=== PATIENT | female | born 2000 | race Caucasian/White ===

== ENCOUNTER 2019-11-10 15:45 | Emergency (ER) | payer MEDICAID, OTHER ==
[2019-11-10] MEDS ORDERED: Sodium Chloride 0.9% 1000 ML 1,000 ML IV STA (15:58)
[2019-11-10] MEDS ORDERED: MORPHINE SULFATE 2 MG INJ IV ONE (15:58)
[2019-11-10] MEDS ORDERED: Zofran 4 MG/2 ML VIAL IV ONE (15:58)
[2019-11-10 16:04] VITALS: PULSE 80
[2019-11-10] MEDS ORDERED: Zofran 4 MG/2 ML VIAL ONE ×2 (16:24→17:49)
[2019-11-10] MEDS ORDERED: Sodium Chloride 0.9% 1000 ML 1,000 ML ONE (16:25)
[2019-11-10] MEDS ORDERED: MORPHINE SULFATE 4 MG INJ ONE (16:25)
--- NOTE | 2019-11-10 16:32 | ERPHSYRPT ---
- History of Present Illness Time Seen by Provider: 11/10/19 15:47 Source: patient Exam Limitations: no limitations Patient Subjective Stated Complaint: Pt c/o of pain that began in her left flank a couple of days ago and has now moved around to her lower abdomen, pt has hx of kidney stones requiring surgery Triage Nursing Assessment: Pt brought to the ER by her grandfather, pain with palpatation to the left flank and lower abdomen, last BM today, N&V, vitals wnl , rates pain 8/10, hematuria, bowel sounds heard in all 4 Physician History: Patient is here with left flank pain. No falls no trauma. Patient states that she has a history of kidney stones. She is not . States that she is on her period. She has 3 children. She previously had her gallbladder out and appendicitis. Location: left flank Quality: sharp Radiation: into abdomen Severity: moderate Duration: 2-3 days Timing: gradual Modifying factors/associated signs and symptoms: h/o kidney stone Allergies/Adverse Reactions: NSAIDS (Non-Steroidal Anti-Inflamma Allergy (Verified 11/10/19 16:04) Home Medications: No Reportable Medications [No Reported Medications] 11/10/19 [History] Hx Tetanus, Diphtheria Vaccination/Date Given: No Hx Influenza Vaccination/Date Given: No Hx Pneumococcal Vaccination/Date Given: No Travel Risk - International Travel Have you traveled outside of the country in past 3 weeks: No Have you or anyone close to you been diagnosed with or: No Do your reside in a community with a known COVID-19 case?: Yes If Yes where:: [place] - Coronavirus Screening Has patient experienced Coronavirus symptoms: No - Review of Systems Constitutional: No Fever, No Chills Eyes: No Symptoms Ears, Nose, & Throat: No Symptoms Respiratory: No Cough, No Dyspnea Cardiac: No Chest Pain, No Edema, No Syncope Abdominal/Gastrointestinal: Abdominal Pain, Nausea, Vomiting, No Diarrhea Genitourinary Symptoms: No Dysuria Musculoskeletal: No Back Pain, No Neck Pain Skin: No Rash Neurological: No Dizziness, No Focal Weakness, No Sensory Changes Psychological: No Symptoms Endocrine: No Symptoms All Other Systems: Reviewed and Negative - Past Medical History Pertinent Past Medical History: Yes History: Other Other Medical History: KIDNEY STONES, OVARIAN CYSTS - Past Surgical History Past Surgical History: Yes Gastrointestinal: Appendectomy, Cholecystectomy, Hemorrhoidectomy Other Surgical History: STENTS IN BOTH KIDNEYS, KIDNEY STONES REMOVED, T&A, - Social History Smoking Status: Never smoker Exposure to second hand smoke: No Drug Use: none Patient Lives Alone: No - Female History Hx Last Menstrual Period: 11/05/2019 Hx Now: No - Nursing Vital Signs Nursing Vital Signs: Initial Vital Signs Temperature 98.0 F 11/10/19 15:50 Pulse Rate 80 11/10/19 15:50 Blood Pressure 135/88 11/10/19 15:50 O2 Sat by Pulse Oximetry 100 11/10/19 15:50 Pain Scale Pain Intensity 8 - Physical Exam General Appearance: no apparent distress, alert Eye Exam: PERRL/EOMI, eyes nml inspection Ears, Nose, Throat Exam: normal ENT inspection, TMs normal, pharynx normal, moist mucous membranes Neck Exam: normal inspection, non-tender, supple, full range of motion Respiratory Exam: normal breath sounds, lungs clear, No respiratory distress Cardiovascular Exam: regular rate/rhythm, normal heart sounds, normal peripheral pulses Gastrointestinal/Abdomen Exam: soft, normal bowel sounds, tenderness (Left flank tenderness. Mild abdominal tenderness without rebound or guarding.), other, No mass Back Exam: normal inspection, normal range of motion, No CVA tenderness, No vertebral tenderness Extremity Exam: normal inspection, normal range of motion, pelvis stable Neurologic Exam: alert, oriented x 3, cooperative, normal mood/affect, nml cerebellar function, nml station & gait, sensation nml, No motor deficits Skin Exam: normal color, warm, dry, No rash Lymphatic Exam: No adenopathy SpO2 Interpretation: normal SpO2: 100 - Course Nursing assessment & vital signs reviewed: Yes Ordered Tests: Active Orders 24 hr Category Date Time Status IV Insertion STAT Care 11/10/19 15:58 Active ABDOMEN AND PELVIS W CONTRAST [CT] Stat Exams 11/10/19 16:38 Taken CBC W DIFF Stat Lab 11/10/19 16:20 Completed CMP Stat Lab 11/10/19 16:20 Completed CULTURE,URINE Stat Lab 11/10/19 16:23 Received HCG,QUALITATIVE URINE Stat Lab 11/10/19 16:23 Completed LIPASE Stat Lab 11/10/19 16:20 Completed UA W/RFX UR CULTURE Stat Lab 11/10/19 16:23 Completed Medication Summary Discontinued Medications Generic Name Dose Route Start Last Admin Trade Name Freq PRN Reason Stop Dose Admin Diphenhydramine HCl 25 mg 11/10/19 17:35 11/10/19 17:54 Benadryl 50 Mg/Ml IV 11/10/19 17:36 Not Given STAT ONE Droperidol 1.25 mg 11/10/19 17:35 11/10/19 17:55 Inapsine 5 Mg/2 Ml IV 11/10/19 17:36 Not Given STAT ONE Droperidol Confirm 11/10/19 17:49 Inapsine 5 Mg/2 Ml Administered 11/10/19 17:50 Dose 5 mg .ROUTE .STK-MED ONE Sodium Chloride 1,000 mls @ 999 mls/hr 11/10/19 15:58 11/10/19 16:29 Sodium Chloride 0.9% 1000 Ml IV 11/10/19 16:58 999 mls/hr .Q1H1M STA Administration Sodium Chloride Confirm 11/10/19 16:25 Sodium Chloride 0.9% 1000 Ml Administered 11/10/19 16:26 Dose 1,000 mls @ ud .ROUTE .STK-MED ONE Morphine Sulfate 2 mg 11/10/19 15:58 11/10/19 16:31 Morphine Sulfate 2 Mg Inj IV 11/10/19 15:59 2 mg STAT ONE Administration Morphine Sulfate Confirm 11/10/19 16:25 Morphine Sulfate 4 Mg Inj Administered 11/10/19 16:26 Dose 4 mg .ROUTE .STK-MED ONE Ondansetron HCl 4 mg 11/10/19 15:58 11/10/19 16:30 Zofran 4 Mg/2 Ml Vial IV 11/10/19 15:59 4 mg STAT ONE Administration Ondansetron HCl Confirm 11/10/19 16:24 Zofran 4 Mg/2 Ml Vial Administered 11/10/19 16:25 Dose 4 mg .ROUTE .STK-MED ONE Ondansetron HCl Confirm 11/10/19 17:49 Zofran 4 Mg/2 Ml Vial Administered 11/10/19 17:50 Dose 4 mg .ROUTE .STK-MED ONE Lab/Rad Data: Laboratory Result Diagrams 11/10/19 16:20 11/10/19 16:20 Laboratory Results 11/10/19 11/10/19 11/10/19 Range/Units 16:23 16:23 16:20 WBC (4.0-10.5) K/mm3 RBC (4.1-5.4) M/mm3 Hgb (12.0-16.0) gm/dl Hct (35-47) % MCV (78-100) fl MCH (26-32) pg MCHC (32-36) g/dl RDW (11.5-14.0) % Plt Count (150-450) K/mm3 MPV (7.5-11.0) fl Gran % (36.0-66.0) % Eos # (Auto) (0-0.5) Absolute Lymphs (auto) (1.0-4.6) Absolute Monos (auto) (0.0-1.3) Lymphocytes % (24.0-44.0) % Monocytes % (0.0-12.0) % Eosinophils % (0.00-5.0) % Basophils % (0.0-0.4) % Absolute Granulocytes (1.4-6.9) Basophils # (0-0.4) Sodium 137 (137-145) mmol/L Potassium 4.9 (3.5-5.1) mmol/L Chloride 102 (98-107) mmol/L Carbon Dioxide 23 (22-30) mmol/L Anion Gap 17.5 H (5-15) MEQ/L BUN 12 (7-17) mg/dL Creatinine 0.46 L (0.52-1.04) mg/dL Estimated GFR > 60.0 ML/MIN Glucose 117 H (74-106) mg/dL Calcium 9.3 (8.4-10.2) mg/dL Total Bilirubin 1.10 (0.2-1.3) mg/dL AST 44 H (14-36) U/L ALT 11 (0-35) U/L Alkaline Phosphatase 63 (38-126) U/L Serum Total Protein 8.6 H (6.3-8.2) g/dL Albumin 4.9 (3.5-5.0) g/dL Lipase 72 (23-300) U/L Urine Color YELLOW (YELLOW) Urine Appearance CLOUDY (CLEAR) Urine pH 8.0 (5-6) Ur Specific [place] 1.014 (1.005-1.025) Urine Protein NEGATIVE (Negative) Urine Ketones NEGATIVE (NEGATIVE) Urine Blood LARGE (0-5) Dionte/ul Urine Nitrite NEGATIVE (NEGATIVE) Urine Bilirubin NEGATIVE (NEGATIVE) Urine Urobilinogen NEGATIVE (0-1) mg/dL Ur Leukocyte Esterase NEGATIVE (NEGATIVE) Urine WBC (Auto) 6-10 (0-5) /HPF Urine RBC (Auto) >101 (0-2) /HPF U Epithel Cells (Auto) RARE (FEW) /HPF Urine Bacteria (Auto) FEW (NEGATIVE) /HPF Urine Mucus (Auto) SLIGHT (NEGATIVE) /HPF Urine Culture Reflexed YES (NO) Urine Glucose NEGATIVE (NEGATIVE) mg/dL Urine HCG, Qual NEGATIVE (Negative) 11/10/19 Range/Units 16:20 WBC 7.8 (4.0-10.5) K/mm3 RBC 4.24 (4.1-5.4) M/mm3 Hgb 13.4 (12.0-16.0) gm/dl Hct 41.2 (35-47) % MCV 97.2 (78-100) fl MCH 31.6 (26-32) pg MCHC 32.5 (32-36) g/dl RDW 11.7 (11.5-14.0) % Plt Count 308 (150-450) K/mm3 MPV 11.0 (7.5-11.0) fl Gran % 68.7 H (36.0-66.0) % Eos # (Auto) 0.03 (0-0.5) Absolute Lymphs (auto) 1.88 (1.0-4.6) Absolute Monos (auto) 0.49 (0.0-1.3) Lymphocytes % 24.2 (24.0-44.0) % Monocytes % 6.3 (0.0-12.0) % Eosinophils % 0.4 (0.00-5.0) % Basophils % 0.4 (0.0-0.4) % Absolute Granulocytes 5.35 (1.4-6.9) Basophils # 0.03 (0-0.4) Sodium (137-145) mmol/L Potassium (3.5-5.1) mmol/L Chloride (98-107) mmol/L Carbon Dioxide (22-30) mmol/L Anion Gap (5-15) MEQ/L BUN (7-17) mg/dL Creatinine (0.52-1.04) mg/dL Estimated GFR ML/MIN Glucose (74-106) mg/dL Calcium (8.4-10.2) mg/dL Total Bilirubin (0.2-1.3) mg/dL AST (14-36) U/L ALT (0-35) U/L Alkaline Phosphatase (38-126) U/L Serum Total Protein (6.3-8.2) g/dL Albumin (3.5-5.0) g/dL Lipase (23-300) U/L Urine Color (YELLOW) Urine Appearance (CLEAR) Urine pH (5-6) Ur Specific [place] (1.005-1.025) Urine Protein (Negative) Urine Ketones (NEGATIVE) Urine Blood (0-5) Dionte/ul Urine Nitrite (NEGATIVE) Urine Bilirubin (NEGATIVE) Urine Urobilinogen (0-1) mg/dL Ur Leukocyte Esterase (NEGATIVE) Urine WBC (Auto) (0-5) /HPF Urine RBC (Auto) (0-2) /HPF U Epithel Cells (Auto) (FEW) /HPF Urine Bacteria (Auto) (NEGATIVE) /HPF Urine Mucus (Auto) (NEGATIVE) /HPF Urine Culture Reflexed (NO) Urine Glucose (NEGATIVE) mg/dL Urine HCG, Qual (Negative) - Progress Progress: improved Progress Note: 11/10/19 16:33 differential diagnosis includes kidney stone, compression fracture, infection, UTI, triple AAA - basic labs including: CBC, lipase, CMP, UA, screen - insert IV for fluids, pain meds, nausea control - consider imaging: CT ab/pelvis 11/10/19 17:56 CT scan demonstrates small bowel enteritis. No other obvious lab abnormalities. UA does show some blood. Patient is on her period. However, no signs of a UTI, no elevation in white patient's blood cell count. Therefore , most likely a small bowel enteritis. She will follow-up with her PCP for abdominal reexam in 24 to 48 hours. Return here for any new or changing symptoms. Plan of care was discussed with patient and all questions answered. The patient is agreeable to be discharged home and both verbal and printed discharge instructions were provided.The patient agreed to seek outpatient follow up as discussed. The patient was given strict instructions to return to the emergency department for worsening symptoms or any other emergent concerns. The patient verbalized understanding. 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 Return here immediately should anything change.
[2019-11-10 16:34] LABS: Appearance CLOUDY (CLEAR); Bacteria FEW /HPF (NEGATIVE); Bilirubin NEGATIVE (NEGATIVE); Blood LARGE Ery/ul (0-5); Epithelial Cells RARE /HPF (FEW); Glucose NEGATIVE (NEGATIVE); Ketones NEGATIVE (NEGATIVE); Leukocyte Esterase NEGATIVE (NEGATIVE); Mucus SLIGHT /HPF (NEGATIVE); Nitrite NEGATIVE (NEGATIVE); Protein,Urine Dip NEGATIVE (Negative); Specific Gravity 1.014 (1.005-1.025); Urobilinogen NEGATIVE mg/dL (0-1)
[2019-11-10 16:36] LABS: RBC >101 /HPF (0-2)
[2019-11-10 16:36] LABS: Absolute Neutrophil Ct (ANC) 5.35 (1.4-6.9); BASOPHIL % 0.4 % (0.0-0.4); Basophil (Absolute #) 0.03 (0-0.4); Eosinophil % 0.4 % (0.00-5.0); Eosinophil (Absolute #) 0.03 (0-0.5); Hematocrit 41.2 % (35-47); Hemoglobin 13.4 gm/dl (12.0-16.0); Lymphocyte (Absolute #) 1.88 (1.0-4.6); Lymphocytes % 24.2 % (24.0-44.0); Mean Cell Volume 97.2 fl (78-100); Mean Corpuscular Hemoglobin 31.6 pg (26-32); Mean Corpuscular Hgb Concent. 32.5 g/dl (32-36); Monocyte (Absolute #) 0.49 (0.0-1.3); Monocytes % 6.3 % (0.0-12.0); Neutrophil % 68.7 % (36.0-66.0); Platelet Count 308 K/mm3 (150-450); Red Blood Count 4.24 M/mm3 (4.1-5.4); Red Cell Distribution Width 11.7 % (11.5-14.0); White Blood Count 7.8 K/mm3 (4.0-10.5)
[2019-11-10 16:47] LABS: ALBUMIN 4.9 g/dL (3.5-5.0); ALKALINE PHOSPHATASE 63 U/L (38-126); ANION GAP 17.5 MEQ/L (5-15); BLOOD UREA NITROGEN 12 mg/dL (7-17); CHLORIDE 102 mmol/L (98-107); Calcium 9.3 mg/dL (8.4-10.2); Carbon Dioxide 23 mmol/L (22-30); Creatinine 1 0.46 mg/dL (0.52-1.04); Glucose 117 mg/dL (74-106); LIPASE 72 U/L (23-300); Potassium 4.9 mmol/L (3.5-5.1); SGOT/AST 44 U/L (14-36); SGPT/ALT 11 U/L (0-35); SODIUM 137 mmol/L (137-145); Total Protein 8.6 g/dL (6.3-8.2)
[2019-11-10] MEDS ORDERED: BENADRYL 50 MG/ML IV ONE (17:35)
[2019-11-10] MEDS ORDERED: Inapsine 5 MG/2 ML IV ONE (17:35)
[2019-11-10] MEDS ORDERED: Inapsine 5 MG/2 ML ONE (17:49)
[2019-11-10 18:07] VITALS: BP 110/70; O2SAT 97
--- NOTE | 2019-11-10 20:36 | XRAY ---
Indication: Abdominal pain. Multiple contiguous axial images obtained through the abdomen and pelvis using 80 cc of Isovue 370 contrast as ordered. Comparison: February 20, 2016. Lung bases remain clear. Heart is not enlarged. Visualized distal esophagus mildly fluid distended presumed from gastroesophageal reflux. Stomach is distended with food/fluid. Noncontrasted stomach and bowel loops appear nonobstructed. Left abdomen small bowel loops now demonstrates circumferential wall thickening/enhancement favoring enteritis. Again reported appendectomy and cholecystectomy. There is again mild diffuse scattered fecal debris throughout. Tiny cul-de-sac free fluid presumed physiologic from rupture/leaking cyst. New tampon in situ. Remaining liver, pancreas, spleen, adrenal glands, kidneys, ureters, bladder, uterus, and aorta appear unremarkable. Osseous structures intact with mild levoscoliosis centered at L1. Impression: 1. New CT findings favoring enteritis. No complications. 2. Again diffuse fecal stasis. 3. Cul-de-sac free fluid presumed physiologic. 4. Fluid in distal esophagus presumably from gastroesophageal reflux. Comment: Preliminary interpretation was made by [facility]. No critical discrepancy.
== END 2019-11-10 18:08 | disposition home or self-care (01) ==
LOC: ED 15:45
DX: K52.9 Noninfective gastroenteritis and colitis, unspecified (principal); R10.9 Unspecified abdominal pain; Z87.442 Personal history of urinary calculi
CPT/HCPCS: 36415; 74177; 80053; 81001; 83690; 84703; 85025; 87077; 87086; 87186; 96360; 96374; 96375; 99284; J2270; J2405

== ENCOUNTER 2020-03-07 10:13 | Emergency (ER) | payer OTHER ==
--- NOTE | 2020-03-07 10:15 | ERPHSYRPT ---
- History of Present Illness Time Seen by Provider: 03/07/20 10:15 Historian: patient Exam Limitations: no limitations Physician History: This is a 19-year-old white female who presents with 2-day history of left flank pain with radiation to the left lower quadrant. As a child, patient did have a ureteral stone which required a ureteral stent placed. She has not had any problems until 2 days ago. Patient has associated nausea secondary to pain. She has had no vomiting she had no diarrhea she has no chest pain and no shortness of breath. Patient has had no fevers or chills. Timing/Duration: day(s) (2) Quality: sharpness, stabbing Abdominal Pain Onset Location: LLQ, flank (Left) Pain Radiation: LLQ, flank (Left) Severity of Pain-Max: moderate Severity of Pain-Current: moderate Modifying Factors: Improves With: other (Nausea) Associated Symptoms: nausea Previous symptoms: same symptoms as today Allergies/Adverse Reactions: NSAIDS (Non-Steroidal Anti-Inflamma Allergy (Verified 11/10/19 16:04) Hx Tetanus, Diphtheria Vaccination/Date Given: No Hx Influenza Vaccination/Date Given: No Hx Pneumococcal Vaccination/Date Given: No Travel Risk - International Travel Have you traveled outside of the country in past 3 weeks: No - Coronavirus Screening Are you exhibiting any of the following symptoms?: No Close contact with a COVID-19 positive Pt in past 14-21 Days: No - Review of Systems Constitutional: No Symptoms Eyes: No Symptoms Ears, Nose, & Throat: No Symptoms Respiratory: No Symptoms Cardiac: No Symptoms Abdominal/Gastrointestinal: Abdominal Pain (Lower quadrant) Genitourinary Symptoms: Flank Pain (Left) Musculoskeletal: No Symptoms Skin: No Symptoms Neurological: No Symptoms Psychological: No Symptoms Endocrine: No Symptoms Hematologic/Lymphatic: No Symptoms Immunological/Allergic: No Symptoms All Other Systems: Reviewed and Negative - Past Medical History Pertinent Past Medical History: Yes Neurological History: No Pertinent History ENT History: No Pertinent History Cardiac History: No Pertinent History Respiratory History: No Pertinent History Endocrine Medical History: No Pertinent History Musculoskeletal History: No Pertinent History GI Medical History: No Pertinent History History: Other Psycho-Social History: No Pertinent History Female Reproductive Disorders: No Pertinent History Other Medical History: KIDNEY STONES, OVARIAN CYSTS - Past Surgical History Past Surgical History: Yes Neuro Surgical History: No Pertinent History Cardiac: No Pertinent History Respiratory: No Pertinent History Gastrointestinal: Appendectomy, Cholecystectomy, Hemorrhoidectomy Genitourinary: No Pertinent History Musculoskeletal: No Pertinent History Female Surgical History: No Pertinent History Other Surgical History: STENTS IN BOTH KIDNEYS, KIDNEY STONES REMOVED, T&A, - Social History Smoking Status: Never smoker Exposure to second hand smoke: No Drug Use: none Patient Lives Alone: No - Nursing Vital Signs Nursing Vital Signs: Initial Vital Signs Temperature 98.1 F 03/07/20 10:23 Pulse Rate 93 H 03/07/20 10:23 Respiratory Rate 20 03/07/20 10:23 Blood Pressure 108/68 03/07/20 10:23 O2 Sat by Pulse Oximetry 100 03/07/20 10:23 Pain Scale Pain Intensity 4 - Physical Exam General Appearance: mild distress, alert, anxiety Eye Exam: PERRL/EOMI, eyes nml inspection Ears, Nose, Throat Exam: normal ENT inspection, moist mucous membranes Neck Exam: normal inspection, non-tender, supple, full range of motion Respiratory Exam: normal breath sounds, lungs clear, airway intact, No chest tenderness, No respiratory distress Cardiovascular Exam: regular rate/rhythm, normal heart sounds, normal peripheral pulses Gastrointestinal/Abdomen Exam: soft, normal bowel sounds, tenderness (Mild left lower quadrant) Pelvic Exam: not done Back Exam: CVA tenderness (Left) Extremity Exam: normal inspection, normal range of motion, pelvis stable Neurologic Exam: alert, oriented x 3, cooperative, recreation attendant supervisor II-XII nml as tested, normal mood/affect, nml cerebellar function, nml station & gait, sensation nml Skin Exam: normal color, warm, dry Lymphatic Exam: No adenopathy SpO2 Interpretation: normal O2 Delivery: Room Air Ordered Tests: Active Orders 24 hr Category Date Time Status IV Insertion STAT Care 03/07/20 10:36 Active ABDOMEN AND PELVIS W/0 CONTRAS [CT] Stat Exams 03/07/20 10:34 Completed AMYLASE Stat Lab 03/07/20 10:35 Completed CBC W DIFF Stat Lab 03/07/20 10:35 Completed CMP Stat Lab 03/07/20 10:35 Completed CULTURE,URINE Stat Lab 03/07/20 10:41 Received HCG,QUALITATIVE URINE Stat Lab 03/07/20 10:41 Completed LIPASE Stat Lab 03/07/20 10:35 Completed Lactic Acid Stat Lab 03/07/20 10:34 Completed UA W/RFX UR CULTURE Stat Lab 03/07/20 10:41 Completed Medication Summary Discontinued Medications Generic Name Dose Route Start Last Admin Trade Name Margo PRN Reason Stop Dose Admin Hydromorphone HCl 1 mg 03/07/20 10:36 03/07/20 11:25 Hydromorphone 1 Mg/Ml Ampule IV 03/07/20 10:37 Not Given STAT ONE Hydromorphone HCl Confirm 03/07/20 10:42 Hydromorphone 1 Mg/Ml Ampule Administered 03/07/20 10:43 Dose 1 mg .ROUTE .STK-MED ONE Hydromorphone HCl 0.5 mg 03/07/20 11:12 03/07/20 11:24 Hydromorphone 1 Mg/Ml Ampule IV 03/07/20 11:13 0.5 mg STAT ONE Administration Sodium Chloride 1,000 mls @ 999 mls/hr 03/07/20 10:36 03/07/20 10:43 Sodium Chloride 0.9% 1000 Ml IV 03/07/20 11:36 999 mls/hr .Q1H1M STA Administration Sodium Chloride Confirm 03/07/20 10:42 Sodium Chloride 0.9% 1000 Ml Administered 03/07/20 10:43 Dose 1,000 mls @ ud .ROUTE .STK-MED ONE Ondansetron HCl 4 mg 03/07/20 10:36 03/07/20 10:44 Zofran 4 Mg/2 Ml Vial IV 03/07/20 10:37 4 mg STAT ONE Administration Ondansetron HCl Confirm 03/07/20 10:42 Zofran 4 Mg/2 Ml Vial Administered 03/07/20 10:43 Dose 4 mg .ROUTE .STK-MED ONE Lab/Rad Data: Laboratory Result Diagrams 03/07/20 10:35 03/07/20 10:35 Laboratory Results 03/07/20 03/07/20 03/07/20 Range/Units 10:41 10:41 10:35 WBC (4.0-10.5) K/mm3 RBC (4.1-5.4) M/mm3 Hgb (12.0-16.0) gm/dl Hct (35-47) % MCV (78-100) fl MCH (26-32) pg MCHC (32-36) g/dl RDW (11.5-14.0) % Plt Count (150-450) K/mm3 MPV (7.5-11.0) fl Gran % (36.0-66.0) % Eos # (Auto) (0-0.5) Absolute Lymphs (auto) (1.0-4.6) Absolute Monos (auto) (0.0-1.3) Lymphocytes % (24.0-44.0) % Monocytes % (0.0-12.0) % Eosinophils % (0.00-5.0) % Basophils % (0.0-0.4) % Absolute Granulocytes (1.4-6.9) Basophils # (0-0.4) Sodium 140 (137-145) mmol/L Potassium 4.2 (3.5-5.1) mmol/L Chloride 103 (98-107) mmol/L Carbon Dioxide 27 (22-30) mmol/L Anion Gap 13.5 (5-15) MEQ/L BUN 8 (7-17) mg/dL Creatinine 0.59 (0.52-1.04) mg/dL Estimated GFR > 60.0 ML/MIN Glucose 122 H (74-106) mg/dL Lactic Acid (0.4-2.0) Calcium 9.8 (8.4-10.2) mg/dL Total Bilirubin 0.40 (0.2-1.3) mg/dL AST 26 (14-36) U/L ALT 11 (0-35) U/L Alkaline Phosphatase 75 (38-126) U/L Serum Total Protein 8.3 H (6.3-8.2) g/dL Albumin 5.1 H (3.5-5.0) g/dL Amylase 84 (30-110) U/L Lipase 60 (23-300) U/L Urine Color YELLOW (YELLOW) Urine Appearance SLIGHTLY CLOUDY (CLEAR) Urine pH 6.0 (5-6) Ur Specific [place] 1.010 (1.005-1.025) Urine Protein NEGATIVE (Negative) Urine Ketones NEGATIVE (NEGATIVE) Urine Blood LARGE (0-5) Dionte/ul Urine Nitrite NEGATIVE (NEGATIVE) Urine Bilirubin NEGATIVE (NEGATIVE) Urine Urobilinogen NEGATIVE (0-1) mg/dL Ur Leukocyte Esterase TRACE (NEGATIVE) Urine WBC (Auto) 6-10 (0-5) /HPF Urine RBC (Auto) >101 (0-2) /HPF U Epithel Cells (Auto) RARE (FEW) /HPF Urine Bacteria (Auto) FEW (NEGATIVE) /HPF Urine Mucus (Auto) SLIGHT (NEGATIVE) /HPF Urine Culture Reflexed YES (NO) Urine Glucose NEGATIVE (NEGATIVE) mg/dL Urine HCG, Qual NEGATIVE (Negative) 03/07/20 03/07/20 Range/Units 10:35 10:34 WBC 8.3 (4.0-10.5) K/mm3 RBC 4.57 (4.1-5.4) M/mm3 Hgb 14.2 (12.0-16.0) gm/dl Hct 45.0 (35-47) % MCV 98.5 (78-100) fl MCH 31.1 (26-32) pg MCHC 31.6 L (32-36) g/dl RDW 12.4 (11.5-14.0) % Plt Count 344 (150-450) K/mm3 MPV 10.8 (7.5-11.0) fl Gran % 73.1 H (36.0-66.0) % Eos # (Auto) 0.11 (0-0.5) Absolute Lymphs (auto) 1.66 (1.0-4.6) Absolute Monos (auto) 0.42 (0.0-1.3) Lymphocytes % 20.1 L (24.0-44.0) % Monocytes % 5.1 (0.0-12.0) % Eosinophils % 1.3 (0.00-5.0) % Basophils % 0.4 (0.0-0.4) % Absolute Granulocytes 6.05 (1.4-6.9) Basophils # 0.03 (0-0.4) Sodium (137-145) mmol/L Potassium (3.5-5.1) mmol/L Chloride (98-107) mmol/L Carbon Dioxide (22-30) mmol/L Anion Gap (5-15) MEQ/L BUN (7-17) mg/dL Creatinine (0.52-1.04) mg/dL Estimated GFR ML/MIN Glucose (74-106) mg/dL Lactic Acid 1.2 (0.4-2.0) Calcium (8.4-10.2) mg/dL Total Bilirubin (0.2-1.3) mg/dL AST (14-36) U/L ALT (0-35) U/L Alkaline Phosphatase (38-126) U/L Serum Total Protein (6.3-8.2) g/dL Albumin (3.5-5.0) g/dL Amylase (30-110) U/L Lipase (23-300) U/L Urine Color (YELLOW) Urine Appearance (CLEAR) Urine pH (5-6) Ur Specific [place] (1.005-1.025) Urine Protein (Negative) Urine Ketones (NEGATIVE) Urine Blood (0-5) Dionte/ul Urine Nitrite (NEGATIVE) Urine Bilirubin (NEGATIVE) Urine Urobilinogen (0-1) mg/dL Ur Leukocyte Esterase (NEGATIVE) Urine WBC (Auto) (0-5) /HPF Urine RBC (Auto) (0-2) /HPF U Epithel Cells (Auto) (FEW) /HPF Urine Bacteria (Auto) (NEGATIVE) /HPF Urine Mucus (Auto) (NEGATIVE) /HPF Urine Culture Reflexed (NO) Urine Glucose (NEGATIVE) mg/dL Urine HCG, Qual (Negative) - Progress Progress: improved, pain not gone completely, re-examined Progress Note: 03/07/20 11:43 CAT scan of the abdomen and pelvis reveals significant diffuse fecal stasis. No other acute intra-abdominal abnormality appreciated. Counseled pt/family regarding: lab results, diagnosis, need for follow-up, rad results - Departure Departure Disposition: Home Clinical Impression: Constipation, Hematuria, UTI (urinary tract infection) Condition: Stable Critical Care Time: No Referrals: DOCTOR,NO FAMILY [Primary Care Provider] - Additional Instructions: Drink plenty of fluids. Take your medication as prescribed. Use the fleets enema and magnesium citrate as discussed and per directions on the package insert. Follow-up with your primary care physician as needed. Prescriptions: Smz/Tmp Ds Tablet [Bactrim Ds Tablet] 1 udtab PO BID #14 tablet
[2020-03-07] MEDS ORDERED: Zofran 4 MG/2 ML VIAL IV ONE (10:36)
[2020-03-07] MEDS ORDERED: Sodium Chloride 0.9% 1000 ML 1,000 ML IV STA (10:36)
[2020-03-07] MEDS ORDERED: Zofran 4 MG/2 ML VIAL ONE (10:42)
[2020-03-07] MEDS ORDERED: Hydromorphone 1 mg/ml Ampule ONE (10:42)
[2020-03-07] MEDS ORDERED: Sodium Chloride 0.9% 1000 ML 1,000 ML ONE (10:42)
[2020-03-07] MEDS: Hydromorphone 1 mg/ml Ampule IV ONE ×2 (10:44→11:25)
[2020-03-07 10:47] LABS: Absolute Neutrophil Ct (ANC) 6.05 (1.4-6.9); BASOPHIL % 0.4 % (0.0-0.4); Basophil (Absolute #) 0.03 (0-0.4); Eosinophil % 1.3 % (0.00-5.0); Eosinophil (Absolute #) 0.11 (0-0.5); Hemoglobin 14.2 gm/dl (12.0-16.0); Lymphocyte (Absolute #) 1.66 (1.0-4.6); Lymphocytes % 20.1 % (24.0-44.0); Mean Cell Volume 98.5 fl (78-100); Mean Corpuscular Hemoglobin 31.1 pg (26-32); Mean Corpuscular Hgb Concent. 31.6 g/dl (32-36); Mean Platelet Volume 10.8 fl (7.5-11.0); Monocyte (Absolute #) 0.42 (0.0-1.3); Monocytes % 5.1 % (0.0-12.0); Neutrophil % 73.1 % (36.0-66.0); Platelet Count 344 K/mm3 (150-450); Red Blood Count 4.57 M/mm3 (4.1-5.4); Red Cell Distribution Width 12.4 % (11.5-14.0); White Blood Count 8.3 K/mm3 (4.0-10.5)
[2020-03-07 10:53] LABS: Appearance SLIGHTLY CLOUDY (CLEAR); Bacteria FEW /HPF (NEGATIVE); Bilirubin NEGATIVE (NEGATIVE); Blood LARGE Ery/ul (0-5); Epithelial Cells RARE /HPF (FEW); Glucose NEGATIVE (NEGATIVE); Ketones NEGATIVE (NEGATIVE); Leukocyte Esterase TRACE (NEGATIVE); Mucus SLIGHT /HPF (NEGATIVE); Nitrite NEGATIVE (NEGATIVE); Protein,Urine Dip NEGATIVE (Negative); Urobilinogen NEGATIVE mg/dL (0-1)
[2020-03-07 10:56] LABS: RBC >101 /HPF (0-2)
[2020-03-07 10:58] LABS: ALBUMIN 5.1 g/dL (3.5-5.0); ALKALINE PHOSPHATASE 75 U/L (38-126); AMYLASE 84 U/L (30-110); ANION GAP 13.5 MEQ/L (5-15); BLOOD UREA NITROGEN 8 mg/dL (7-17); CHLORIDE 103 mmol/L (98-107); Calcium 9.8 mg/dL (8.4-10.2); Carbon Dioxide 27 mmol/L (22-30); Creatinine 1 0.59 mg/dL (0.52-1.04); EST GLOMERULAR FILTRATION RATE > 60.0 ML/MIN; Glucose 122 mg/dL (74-106); LIPASE 60 U/L (23-300); Potassium 4.2 mmol/L (3.5-5.1); SGOT/AST 26 U/L (14-36); SGPT/ALT 11 U/L (0-35); SODIUM 140 mmol/L (137-145); Total Protein 8.3 g/dL (6.3-8.2)
[2020-03-07] MEDS ORDERED: Hydromorphone 1 mg/ml Ampule IV ONE (11:12)
--- NOTE | 2020-03-07 11:34 | XRAY ---
Indication: Left abdomen/flank pain 2 days. Multiple contiguous ex images obtained through the abdomen and pelvis without contrast using renal stone protocol. Comparison: November 10, 2019. Lung bases again clear. Heart is not enlarged. No renal calculus or evidence for obstructive uropathy in either system. Stable tiny left pelvic phlebolith, left kidney extrarenal pelvis, appendectomy, and cholecystectomy. No free fluid/air. Noncontrasted stomach and bowel loops appear nonobstructed. There is worsening moderate/significant diffuse fecal stasis throughout including rectum. Remaining liver, pancreas, spleen, adrenal glands, kidneys, ureters, bladder, uterus, and aorta appear unremarkable for noncontrast exam. Osseous structures intact again with mild levoscoliosis. Impression: 1. Negative renal calculus or evidence for obstructive uropathy. 2. Moderate/significant diffuse fecal stasis. 3. Remaining CT abdomen/pelvis without contrast exam is negative.
[2020-03-07] MEDS ORDERED: ROCEPHIN 1 Gm-D5w 50 ml Bag** 1 G/50 ML IVPB IV STA (11:47)
[2020-03-07] MEDS ORDERED: CITROMA 296 ML PO ONE (11:48)
[2020-03-07] MEDS ORDERED: CITROMA 296 ML ONE (12:01)
[2020-03-07] MEDS ORDERED: ROCEPHIN 1 Gm-D5w 50 ml Bag** 1 G/50 ML IVPB IV ONE (12:01)
[2020-03-07] MEDS ORDERED: TYLENOL 325 MG PO STA (12:07)
[2020-03-07] MEDS ORDERED: TYLENOL 325 MG ONE (12:13)
[2020-03-07 12:28] VITALS: BP 96/60; PULSE 69; O2SAT 100
== END 2020-03-07 12:28 | disposition home or self-care (01) ==
LOC: ED 10:13
DX: K59.00 Constipation, unspecified (principal); R31.9 Hematuria, unspecified; N39.0 Urinary tract infection, site not specified; R10.32 Left lower quadrant pain
CPT/HCPCS: 36000; 36415; 74176; 80053; 81001; 82150; 83605; 83690; 84703; 85025; 87086; 96360; 96365; 96374; 96375; 99284; J0696; J1170; J2405; A9270-GY